=== PATIENT | female | born 1935 | race Caucasian/White ===

== ENCOUNTER 2025-08-25 20:03 | Inpatient (IN) | payer MEDICARE, MEDICAID ==
[~2025-08-25] VITALS: Ht 152.4 cm; Wt 55.3 kg
[2025-08-25] MEDS ORDERED: ALBUTEROL FS 2.5 MG/3 ML VIAL.NEB CONTNEB ONE (21:00)
[2025-08-25] MEDS ORDERED: IPRATROPIUM NEB FS 0.5 MG/2.5 ML AMPUL.NEB NEB ONE (21:00)
[2025-08-25 21:07] LABS: PLATELET COUNT (AUTO) 279 K/uL (150-450); RED BLOOD CELL COUNT(AUTO) 3.41 MIL/uL (4.0-5.2); RED CELL DISTRIBUTION WIDTH 13.5 % (11.5-15.0); WHITE BLOOD COUNT (AUTO) 12.2 K/uL (4.3-11.0)
[2025-08-25] MEDS: IV NS 0.9% 500 ML BAG IV ONE (21:11)
[2025-08-25 21:14] LABS: CALCIUM, SERUM 8.9 mg/dL (8.5-10.1); CREATININE 1.2 mg/dL (0.6-1.3); SODIUM SERUM 141 mmol/L (136-145); UREA NITROGEN, BLOOD 31 mg/dL (7-18)
[2025-08-25] MEDS ORDERED: ONDANSETRON HCL/PF 4 MG/2 ML VIAL IVP PRN (22:30)
[2025-08-25] MEDS ORDERED: MAG HYDROX/AL HYDROX/SIMETH 30 ML UDC PO PRN (22:30)
[2025-08-25] MEDS ORDERED: MAGNESIUM HYDROXIDE 30 ML UDC PO PRN (22:30)
[2025-08-25] MEDS ORDERED: ACETAMINOPHEN 325 MG TABLET PO PRN (22:30)
[2025-08-26] MEDS: IV NS 0.9% 1,000 ML IV PRN (02:00)
[2025-08-26] MEDS: PANTOPRAZOLE 40 MG TABLET.DR PO SCH (06:50)
[2025-08-26 07:28] VITALS: BP_SYST 161; BP_SYST 163; BP_SYST 177; BP_DIAS 36; BP_DIAS 63; BP_DIAS 66; O2SAT 96
[2025-08-26 08:00] VITALS: BP 160/66; TEMP 97.6; O2SAT 99
[2025-08-26 08:05] LABS: PLATELET COUNT (AUTO) 279 K/uL (150-450); RED BLOOD CELL COUNT(AUTO) 3.56 MIL/uL (4.0-5.2); RED CELL DISTRIBUTION WIDTH 13.6 % (11.5-15.0); WHITE BLOOD COUNT (AUTO) 11.9 K/uL (4.3-11.0)
[2025-08-26] MEDS: ENOXAPARIN SODIUM 30 MG/0.3 ML DISP.SYRIN SQ SCH (08:29)
[2025-08-26 08:45] LABS: ASPARTATE AMINOTRANSFERASE 16 U/L (15-37); CALCIUM, SERUM 9.0 mg/dL (8.5-10.1); CREATININE 1.1 mg/dL (0.6-1.3); NT-PRO BNP 620 pg/mL (0-125); PHOSPHORUS 3.4 mg/dL (2.5-4.9); SODIUM SERUM 140 mmol/L (136-145); TOTAL PROTEIN, SERUM 6.9 g/dL (6.4-8.2); UREA NITROGEN, BLOOD 27 mg/dL (7-18)
[2025-08-26] MEDS ORDERED: RISP0.5T5 PO (11:08)
[2025-08-26] MEDS ORDERED: SITA25TA PO (11:08)
[2025-08-26] MEDS ORDERED: TRAZ-182 PO (11:08)
[2025-08-26] MEDS ORDERED: CALC-903 PO (11:08)
[2025-08-26] MEDS ORDERED: LOSA100T31 PO (11:08)
[2025-08-26] MEDS ORDERED: MULT-594 PO (11:08)
[2025-08-26] MEDS ORDERED: DOCU100C36 PO (11:08)
[2025-08-26] MEDS ORDERED: LOPE2TAB25 PO (11:08)
[2025-08-26] MEDS ORDERED: MAGN400T52 PO (11:08)
[2025-08-26] MEDS ORDERED: METO-357 PO (11:08)
[2025-08-26] MEDS ORDERED: FAMO10TA94 PO (11:08)
[2025-08-26] MEDS ORDERED: DONE5TAB34 PO (11:08)
[2025-08-26] MEDS ORDERED: ACET325T53 PO (11:08)
[2025-08-26] MEDS ORDERED: AMLO-213 PO (11:08)
[2025-08-26] MEDS ORDERED: METF-881 PO (11:08)
[2025-08-26 12:00] VITALS: BP 168/60; TEMP 98.1; O2SAT 98
[2025-08-26 16:00] VITALS: BP 136/100; TEMP 98.7; O2SAT 100
[2025-08-26 20:00] VITALS: BP 159/82; TEMP 98.2; O2SAT 100
[2025-08-27] MEDS: IV NS 0.9% 1,000 ML IV PRN (01:11)
[2025-08-27 08:21] VITALS: BP 136/98; TEMP 97.7; O2SAT 99
[2025-08-27] MEDS ORDERED: LOPERAMIDE HCL (2 MG CAP) 2 MG CAPSULE PO PRN (09:00)
[2025-08-27] MEDS ORDERED: METFORMIN XR 500 MG TAB.SR.24H PO SCH (09:00)
[2025-08-27] MEDS ORDERED: ACETAMINOPHEN 325 MG TABLET PO PRN (09:00)
[2025-08-27] MEDS: DONEPEZIL 5 MG TABLET PO SCH (09:15)
[2025-08-27] MEDS: DOCUSATE SODIUM 100 MG CAPSULE PO SCH (09:16)
[2025-08-27] MEDS: LOSARTAN POTASSIUM 50 MG TABLET PO SCH (09:17)
[2025-08-27] MEDS: MULTIVITAMINS,THERAGRAN 1 UDTAB TABLET PO SCH (09:17)
[2025-08-27] MEDS: METOPROLOL SUCCINATE 50 MG TAB.SR.24H PO SCH (09:17)
[2025-08-27] MEDS: AMLODIPINE BESYLATE 10 MG TABLET PO SCH (09:18)
[2025-08-27] MEDS: CALCIUM CARB 600MG /VIT D 1 EACH TABLET PO SCH (09:18)
[2025-08-27 12:14] LABS: IRON, SERUM 69 ug/dl (50-175)
[2025-08-27 17:16] LABS: APPEARANCE,URINE CLOUDY (CLEAR); BLOOD, URINE 2+ Ery/uL (NEGATIVE); LEUKOCYTE ESTERASE ,URINE 3+ (NEGATIVE); NITRITE, URINE NEGATIVE (NEGATIVE); UGLUCOSE 1+ mg/dL (NEGATIVE)
[2025-08-27 17:39] LABS: ADD URINE CULTURE YES
[2025-08-27 17:40] LABS: SQUAMOUS EPITHELIAL CELL,UR Few /HPF (None Seen)
[2025-08-27 20:00] VITALS: BP 174/61; TEMP 97.7; O2SAT 99
[2025-08-27] MEDS: TRAZODONE 50 MG TABLET PO SCH (21:51)
[2025-08-27] MEDS: MAGNESIUM OXIDE 400 MG TABLET PO SCH (21:51)
[2025-08-27 22:00] VITALS: BP 160/65; TEMP 97.7; O2SAT 99
[2025-08-28 08:00] VITALS: BP 150/75; TEMP 98.8; O2SAT 98
[2025-08-28 08:45] VITALS: BP 150/76
[2025-08-28] MEDS ORDERED: CEFTRIAXONE 1 G in IV D5W 50 ML IV SCH (09:00)
[2025-08-28] MEDS: LINAGLIPTIN 5 MG TABLET PO SCH (09:14)
[2025-08-28] MEDS: CEFTRIAXONE 1 G VIAL IM SCH (09:54)
[2025-08-30] MEDS ORDERED: SULF1TAB48 PO (14:06)
== END 2025-08-28 15:00 | disposition home health service (06) | DRG 640 ==
LOC: ER 20:08 → TELE 22:07 → MED 08-26 17:11
PROVIDERS: ADMIT Nurse Practitioner Family; ATTEND Nurse Practitioner Acute Care
DX: E86.0 Dehydration (principal); G93.41 Metabolic encephalopathy; D68.59 Other primary thrombophilia; B96.89 Other specified bacterial agents as the cause of diseases classified elsewhere; D64.9 Anemia, unspecified; E11.9 Type 2 diabetes mellitus without complications; N39.0 Urinary tract infection, site not specified; F02.80 Dementia in other diseases classified elsewhere, unspecified severity, without behavioral disturbance, psychotic disturbance, mood disturbance, and anxiety; I10 Essential (primary) hypertension; D72.829 Elevated white blood cell count, unspecified; G30.9 Alzheimer's disease, unspecified; I25.10 Atherosclerotic heart disease of native coronary artery without angina pectoris; R53.1 Weakness; R55 Syncope and collapse
CPT/HCPCS: 36415; 70450-TC; 71045-TC; 80048-TC; 80076-TC; 81001; 82728-TC; 82962-TC; 83540-TC; 83735-TC; 83880; 84100-TC; 84443-TC; 84484-TC; 85025-TC; 87081-TC; 87086-TC; 87186-TC; 93307-TC; 93880-TC; 97116-TC; 97530-TC; 97535-TC; A4223; G0378; J0696; J1650; J7030; J7040; J7060